=== PATIENT | male | born 1960 | race Caucasian/White ===

== ENCOUNTER → 2016-06-17 | Outpatient (CLI) | payer MEDICAID | LOC: M LAB 14:35 | PROVIDERS: ATTEND Nurse Practitioner Women's Health | DX: N40.0 Benign prostatic hyperplasia without lower urinary tract symptoms (principal) | CPT/HCPCS: 36415; G0103 ==

== ENCOUNTER → 2017-05-24 | Outpatient (CLI) | payer BC | LOC: M RAD 17:42 | DX: N50.3 Cyst of epididymis (principal); N43.3 Hydrocele, unspecified | CPT/HCPCS: 76870 ==

== ENCOUNTER → 2017-06-21 | Outpatient (CLI) | payer BC ==
[2017-06-21 20:12] LABS: PROSTATIC SPECIFIC AG MONITOR 0.95 NG/ML (< 4.0)
== END ==
LOC: M LAB 17:34
DX: N40.0 Benign prostatic hyperplasia without lower urinary tract symptoms (principal)
CPT/HCPCS: 84153

== ENCOUNTER → 2017-08-02 | Outpatient (CLI) | payer BC | LOC: M EKG 17:43 | DX: Z01.818 Encounter for other preprocedural examination (principal); M19.90 Unspecified osteoarthritis, unspecified site | CPT/HCPCS: 93005 ==

== ENCOUNTER → 2018-02-20 | Outpatient (REF) | payer BC ==
[2018-02-20 14:08] LABS: INFLUENZA A AMPLIFICATION NEGATIVE (NEGATIVE); INFLUENZA B AMPLIFICATION NEGATIVE (NEGATIVE)
== END ==
LOC: M LAB REF 13:21
DX: J11.1 Influenza due to unidentified influenza virus with other respiratory manifestations (principal)
CPT/HCPCS: 87502

== ENCOUNTER → 2018-06-08 | Outpatient (CLI) | payer BC ==
[~2018-06-08] MED LIST: CELE1CAP7; CENT1TAB20 PO; CYCL10TA PO; ZANTTAB9 PO
[2018-06-08 18:10] LABS: APPEARANCE, URINE CLEAR (CLEAR); BACTERIA, URINE AUTO NEGATIVE (NEGATIVE); BILIRUBIN, URINE AUTO NEGATIVE (NEGATIVE); BLOOD, URINE BLOOD NEGATIVE (NEGATIVE); COLOR, URINE YELLOW (YELLOW); GLUCOSE, URINE (UA) AUTO NEGATIVE (NEGATIVE); KETONE, URINE AUTO NEGATIVE (NEGATIVE); LEUKOCYTE ESTERASE, URINE AUTO NEGATIVE (NEGATIVE); NITRITE, URINE AUTO NEGATIVE (NEGATIVE); PROTEIN, URINE AUTO NEGATIVE (NEGATIVE); RBC, URINE AUTO 1 /HPF (0-3); SPECIFIC GRAVITY URINE AUTO 1.021 (1.002-1.035); SQUAMOUS EPITHELIAL CELL UR AU 0 /HPF (0-6); UROBILINOGEN, URINE AUTO 0.2 mg/dL (0.0-2.0); WBC, URINE AUTO 0 /HPF (0-3)
== END ==
LOC: M LAB 17:27
PROVIDERS: ATTEND Nurse Practitioner Women's Health
DX: R39.9 Unspecified symptoms and signs involving the genitourinary system (principal); Z12.5 Encounter for screening for malignant neoplasm of prostate
CPT/HCPCS: 36415; 81001; G0103

== ENCOUNTER 2019-01-25 14:22 | Emergency (ER) | payer OTHER, BC ==
[~2019-01-25] VITALS: Ht 182.9 cm; Wt 76.1 kg
[2019-01-25] MEDS ORDERED: KETOROLAC 60 MG/2 ML VIAL (J1885) IM ONE (15:45)
[2019-01-25] MEDS ORDERED: ACETAMINOPHEN 325 MG TAB PO ONE (15:45)
--- NOTE | 2019-01-25 16:17 | REP ---
Lumbar spine five views: Comparison is 05/16/2007. There are two fixation screws in the right iliac wing as an interval change. There is lumbar scoliosis convex left, as an interval change. Vertebral body heights and alignment are normal and unchanged. There is mild disc space narrowing at every lumbar level as an interval change compatible with moderate degenerative disc disease throughout the lumbar spine. There is no spondylolysis or spondylolisthesis. The pedicles and facets are unremarkable. The left sacroiliac articulation is unremarkable. Possible fusion of the right sacroiliac joint superiorly in the location of the fixation screws. Impression: Mild multilevel degenerative disc disease. Mild scoliosis convex left. Fixation screws in the right iliac wing crossing the right sacroiliac joint as an interval change. Possible fusion of the right sacroiliac joint superiorly in the location of the fixation screws. Electronically Signed by Dagoberto Tobias MD 01/25/2019 04:09 P
[2019-01-25 16:39] VITALS: BP 148/94
[2019-01-25] MEDS ORDERED: CYCL10TA PO (17:05)
[2019-01-25] MEDS ORDERED: KETO10TAB PO (17:05)
== END 2019-01-25 17:11 | disposition home or self-care (01) ==
LOC: M ED 14:22
DX: S39.012A Strain of muscle, fascia and tendon of lower back, initial encounter (principal); X50.0XXA Overexertion from strenuous movement or load, initial encounter; Y99.0 Civilian activity done for income or pay; Y92.89 Other specified places as the place of occurrence of the external cause; Y93.89 Activity, other specified; M41.86 Other forms of scoliosis, lumbar region
CPT/HCPCS: 72110; 96365; 96366; 96372; 99283; J1885

== ENCOUNTER → 2020-06-17 | Outpatient (REF) | payer OTHER, BC ==
[~2020-06-17] MED LIST changes: +CYCL-707 PO; -CYCL10TA PO; +KETO10TAB PO
== END ==
LOC: M PLALAB 13:14
PROVIDERS: ATTEND Nurse Practitioner Women's Health
DX: Z12.5 Encounter for screening for malignant neoplasm of prostate (principal)

== ENCOUNTER → 2020-06-27 | Outpatient (CLI) | payer OTHER, BC ==
[~2020-06-27] MED LIST changes: +ACET325C5 PO; +CALTTAB6 PO; +NAPR-885 PO; +QC F0.52 PO; +SILD100T PO; +VITMTA PO
--- NOTE | 2020-06-28 08:56 | ECGEPIP ---
[facility] Test Date: 2020-06-27 Pat Name: DILAN DEL ROSARIO Department: Room: - Gender: Male University Professor: : 1960 Requested By: Anayeli Reveles Order Number: [id number] Reading MD: Jose Cordova Measurements Intervals Rowdy Rate: 75 P: 15 NH: 144 QRS: 31 QRSD: 102 T: 56 QT: 400 QTc: 446 Interpretive Statements Poor data quality, interpretation may be adversely affected Normal sinus rhythm Last tracing on 08/02/17 at 18:03 No remarkable changes Electronically Signed on 06-28-2020 8:56:10 EST by Jose Cordova
== END ==
LOC: M EKG 10:41
PROVIDERS: ATTEND Anesthesiology
DX: Z01.818 Encounter for other preprocedural examination (principal); M06.9 Rheumatoid arthritis, unspecified

== ENCOUNTER → 2020-06-27 | Outpatient (CLI) | payer OTHER, BC | LOC: M LABSMTC 10:14 | PROVIDERS: ATTEND Anesthesiology | DX: Z01.812 Encounter for preprocedural laboratory examination (principal); Z20.822 Contact with and (suspected) exposure to COVID-19 ==

== ENCOUNTER 2020-07-02 08:37 | Day surgery (SDC) | payer OTHER ==
[~2020-07-02] VITALS: Ht 182.9 cm; Wt 78.0 kg
[~2020-07-02 08:37] MED LIST changes: +LIDOCAINE 1% MDV 20ML VIAL SQ PRN; +LR 1,000 ML IV ONE; +MIDAZOLAM INJ 2MG/2ML VIAL (J2250 PER 1MG) IV PRN; +ceFAZolin SOD 2 GM in IV 1 EA IV ONE; +fentaNYL 100 MCG/2 ML INJECTION (J3010) IV PRN
[2020-07-02] MEDS ORDERED: propofoL 200 MG/20 ML VIAL As Ordered ONE (09:28)
[2020-07-02] MEDS ORDERED: KETOROLAC 60MG 2ML VIAL As Ordered ONE (09:28)
[2020-07-02] MEDS ORDERED: ONDANSETRON 4MG/2ML VIAL As Ordered ONE (09:28)
[2020-07-02] MEDS ORDERED: ROCURONIUM BROMIDE 50 MG/5 ML VIAL As Ordered ONE (09:28)
[2020-07-02] MEDS ORDERED: dexameTHASONE 4 MG/ML 1ML VIAL (J1100 PER 1MG) As Ordered ONE (09:28)
[2020-07-02] MEDS ORDERED: fentaNYL 100 MCG/2 ML INJECTION (J3010) As Ordered ONE ×2 (09:28→11:06)
[2020-07-02] MEDS ORDERED: SUGAMMADEX SODIUM 500 MG/5 ML VIAL (BRIDION) As Ordered ONE (09:28)
[2020-07-02] MEDS ORDERED: MIDAZOLAM INJ 2MG/2ML VIAL (J2250 PER 1MG) As Ordered ONE ×2 (09:28→11:06)
[2020-07-02] MEDS ORDERED: LIDOCAINE 2% 100MG/5ML SDV (FOR ANES.) As Ordered ONE (09:28)
[2020-07-02] MEDS ORDERED: ACETAMINOPHEN 1000MG 100ML IV BTL (OFIRMEV) (J0131 PER 10MG) As Ordered ONE (09:28)
[2020-07-02] MEDS ORDERED: dexameTHASONE 10MG/1ML VIAL PRES.FREE (J1100 PER 1MG) As Ordered ONE (11:06)
[2020-07-02] MEDS ORDERED: BUPIVACAINE HCL 0.5% 30 ML VIAL As Ordered ONE (11:06)
[2020-07-02] MEDS ORDERED: EPINEPHrine 1MG/ML INJ 30ML MD-VIAL As Ordered ONE (11:15)
[2020-07-02] MEDS ORDERED: LIDOCAINE 1% MDV 20ML VIAL XX ONE (11:30)
[2020-07-02] MEDS ORDERED: dexameTHASONE 10MG/1ML VIAL PRES.FREE (J1100 PER 1MG) XX ONE (11:30)
[2020-07-02] MEDS ORDERED: BUPIVACAINE HCL 0.5% 30 ML VIAL XX ONE (11:30)
[2020-07-02] MEDS ORDERED: ONDANSETRON 4MG/2ML VIAL IV PRN ×2 (14:00→14:05)
[2020-07-02] MEDS ORDERED: oxyCODONE 5MG TAB PO PRN (14:00)
[2020-07-02] MEDS ORDERED: fentaNYL 100 MCG/2 ML INJECTION (J3010) IV PRN (14:00)
[2020-07-02] MEDS ORDERED: HYDROMORPHONE HCL 0.5 MG/ 0.5 ML SYRINGE (J1170 PER 1) IV PRN (14:00)
[2020-07-02] MEDS ORDERED: LR 1,000 ML IV SCH ×2 (14:00→14:05)
[2020-07-02] MEDS ORDERED: ACETAMINOPHEN TAB 650MG DOSE (2X325MG) PO PRN (14:05)
[2020-07-02] MEDS ORDERED: MORPHINE 2 MG/ML 1ML VIAL (J2270) IV PRN (14:05)
[2020-07-02] MEDS ORDERED: PERCOCET 5MG/325MG TAB PO PRN (14:05)
[2020-07-02 16:05] VITALS: BP 150/95
--- NOTE | 2020-07-03 13:07 | RO ---
OPERATIVE NOTE DATE OF OPERATION: 07/02/2020 PREOPERATIVE DIAGNOSIS: Left shoulder subscapularis tear and biceps instability. POSTOPERATIVE DIAGNOSIS: Left shoulder subscapularis tear and biceps instability. PLANNED PROCEDURES: Left shoulder arthroscopy, rotator cuff repair, and subpectoral biceps tenodesis. PROCEDURES PERFORMED: Left shoulder arthroscopy, rotator cuff repair, subpectoral biceps tenodesis, and subacromial decompression. SURGEON: Hu Hallman MD MOTOR ASSEMBLER: None. ANESTHESIA: General. OPERATIVE PREAMBLE: This 59-year-old man experienced clicking in the front of his shoulder, as well as pain anteriorly and anterolaterally. MRI was consistent with instability of the biceps tendon with subscapularis upper border tear. Prior to the surgery, we discussed pros, cons, risks, and benefits; marked the left upper extremity, and proceeded to surgery. DESCRIPTION OF PROCEDURE: The patient was brought to the operating theater. He was administered general anesthetic. He received a block before surgery. Placed in the left lateral decubitus. All bony prominences were padded. Axillary roll was placed. Two grams of IV Ancef administered prior to the start of the case. The patient's upper extremity was prepped and draped in the usual sterile fashion with Chlorhexidine-based prep solution allowing over three minutes prep solution drying time prior to draping. Ten pounds traction with the arm in 45 degrees abduction was used. Preoperative time-out was performed to confirm the correct patient and surgery. I began by making standard posterior arthroscopy portals inserting the arthroscope into the joint. I used spinal needle localization to perform two cannulas; one 7 mm cannula and 8.25 mm cannula just above the subscapularis tendon. Rotator interval was debrided and opened. The under surface of the rotator cuff tendon and supraspinatus had minor 20% undersurface spraying. This was gently debrided from the anterior portal. The biceps tendon did appear to be splitting the upper border of the subscapularis and unstable. There was a normal sublabral foramen or variant of normal. Anterior labrum had some slight fraying, which was gently debrided. The cartilage appeared normal on the glenoid and humeral head. The rest of the rotator cuff tendon appeared normal. Biceps showed some longitudinal fraying as well. I performed an intraarticular biceps tenotomy using electrocautery and gentle shaving to achieve a stable superior labrum from where the biceps tendon was cut. I then used the PowerPick to stimulate bone healing at the superior aspect of the subscapularis area. The load and shift maneuver revealed upper border fraying and splitting. No obvious full-thickness tears. I used one FiberTape suture in a single fashion at the upper border of the subscapularis. I then used a tap and inserted an Arthrex 4.75 mm BioComposite SwiveLock in the area of the upper border anterior and subscapularis tendon. This achieved good bite, sutures were cut short, and stay suture removed. I then turned my attention to the subacromial space and inserted the arthroscope there. I made a standard lateral portal. I performed a thorough bursectomy. There was quite a tight anterolateral subacromial space. A subacromial decompression was performed with a 5 mm oval umesh width down to flap margins. The bursa was thorough removed. No obvious superior tearing or fraying of the rotator cuff aside from one very small 5 mm area anterolateral with no obvious partial-thickness tears over 50%. The arthroscope was withdrawn. I then turned my attention to performing a subpectoral biceps tenodesis. I made a small longitudinal incision overlying the biceps long head at the proximal anteromedial aspect humerus. Carried dissection down through the skin and subcutaneous tissue achieving meticulous hemostasis. I identified the cephalic vein and retracted this laterally. I identified the long head of the biceps, distal to pectoralis major insertion. I delivered the LHB through incision. I removed 2.5 cm of the long head of the biceps. I then secured LHB using the Arthrex Marc needle and Fiberloop stitch configuration for five throws locking it proximally, cut at the splice, and then passed the sutures in alternating fashion through a button. I then put Fiberlink suture in the undersurface of the biceps tendon. I then used the spade tip drill to drill bicortically at the biceps groove. I then over-reamed the proximal cortex with a 7 mm reamer and irrigated the bone dust. I removed the pin passed the button bicortically, flipped the button, and passed the tendon into the bone tunnel docking it in there securely. I then attached one limb through the FiberLink, securing the sutures over top of the biceps tendon again. I used five interrupted half-hitches and cut the sutures short. I thoroughly irrigated the wounds. Subcutaneous tissue was closed with interrupted 2-0 Vicryl sutures and skin with 3-0 Monocryl. Steri-Strips were applied. The wound was clean dried prior to the application of Adaptic, 4 x 8 gauze, ABD dressing with cloth tape and a sling to the upper extremity. The patient was awoken from general anesthetic, transferred off the operating room table, and taken to the postanesthetic care unit in stable condition. All sponge count, needle count, and instrument counts were correct. COMPLICATIONS: None. ESTIMATED BLOOD LOSS: 50 cc . PLAN: The patient will start pendulum exercises, as well as hand, wrist, and elbow exercises. Follow-up in the office in two weeks' time. He will be discharged home according to day surgery criteria. The patient will be given a prescription to a pharmacy of choice electronically. I performed narcotic counseling prior to the case. [place]
== END 2020-07-02 16:20 | disposition home or self-care (01) ==
LOC: M SDC 08:37
PROVIDERS: ATTEND Orthopaedic Surgery Sports Medicine
DX: S46.212A Strain of muscle, fascia and tendon of other parts of biceps, left arm, initial encounter (principal); M25.312 Other instability, left shoulder; X58.XXXA Exposure to other specified factors, initial encounter; Y92.89 Other specified places as the place of occurrence of the external cause; Y93.9 Activity, unspecified; Y99.0 Civilian activity done for income or pay; K57.92 Diverticulitis of intestine, part unspecified, without perforation or abscess without bleeding; Z79.899 Other long term (current) drug therapy
CPT/HCPCS: 23430; 29826; 29827; 64415; C1713; J0131; J0690; J1100; J1885; J2250; J2405; J3010

== ENCOUNTER → 2021-03-05 | Outpatient (CLI) | payer OTHER ==
[~2021-03-05] MED LIST changes: -LIDOCAINE 1% MDV 20ML VIAL SQ PRN; -LR 1,000 ML IV ONE; -MIDAZOLAM INJ 2MG/2ML VIAL (J2250 PER 1MG) IV PRN; -ceFAZolin SOD 2 GM in IV 1 EA IV ONE; -fentaNYL 100 MCG/2 ML INJECTION (J3010) IV PRN
--- NOTE | 2021-03-06 11:41 | REP ---
INDICATION: LT SHOULDER ASSESS SUPRASPINATUS TENDON. COMPARISON: 02/25/2020. TECHNIQUE: Coronal oblique T1, T2 fat sat, sagittal oblique T2 fat sat, axial T2 fat sat, gradient echo. FINDINGS: Rotator cuff: There is a partial undersurface tear of the infraspinatus tendon. There is a partial full-thickness tear of the supraspinatus tendon. The repaired subscapularis tendon is intact. Acromioclavicular joint: There is widening of the acromioclavicular joint which is unchanged since the prior study. Acromion: Type 2 once again, an os acromiale is noted. Biceps Tendon: There has been a prior biceps tenodesis, the bicipital groove is empty. Hill Sach's deformity: None. Deltoid muscle: No abnormal signal. Labrum: No tear. A sublabral foramen is again noted anteriorly and superiorly. Cartilage: No defects. Bone marrow: No abnormal signal. Joint fluid: There is mild fluid in the subacromial/subdeltoid bursae. No significant glenohumeral joint effusion is present. IMPRESSION: New Partial full-thickness tear of the supraspinatus tendon. Partial undersurface tear of the infraspinatus tendon. The repaired subscapularis tendon is intact. The acromioclavicular region is unchanged. There is evidence of prior biceps tenodesis. There is mild fluid in the subacromial/subdeltoid bursae. <Electronically signed by Dagoberto Serrano > 03/06/21 4331
== END ==
LOC: M PLAIMG 13:32
PROVIDERS: ATTEND Orthopaedic Surgery Sports Medicine
DX: Z48.89 Encounter for other specified surgical aftercare (principal); S46.012D Strain of muscle(s) and tendon(s) of the rotator cuff of left shoulder, subsequent encounter; X58.XXXD Exposure to other specified factors, subsequent encounter; Y92.9 Unspecified place or not applicable; Y93.9 Activity, unspecified; Y99.9 Unspecified external cause status

== ENCOUNTER → 2021-06-24 | Outpatient (CLI) | payer OTHER, BC | LOC: M PLALAB 08:29 | PROVIDERS: ATTEND Nurse Practitioner Women's Health | DX: Z12.5 Encounter for screening for malignant neoplasm of prostate (principal) | CPT/HCPCS: 36415; G0103 ==

== ENCOUNTER → 2022-06-23 | Outpatient (CLI) | payer BC | LOC: M PLALAB 10:04 | PROVIDERS: ATTEND Nurse Practitioner Women's Health | DX: Z12.5 Encounter for screening for malignant neoplasm of prostate (principal) | CPT/HCPCS: 36415; G0103 ==

== ENCOUNTER → 2023-05-31 | Outpatient (CLI) | payer OTHER ==
[~2023-05-31] MED LIST changes: -CELE1CAP7; +CELE1CAP99
[2023-05-31 15:43] LABS: HEMATOCRIT 45.4 % (42.0-52.0); MEAN CORPUSCULAR HEMOGLOBIN 30.7 pg (27.0-33.0); MEAN CORPUSCULAR VOLUME 92.8 fl (80.0-96.0); PLATELET COUNT, AUTOMATED 320 10^3/uL (150-450); RED BLOOD COUNT 4.89 10^6/uL (4.30-6.10); WHITE BLOOD COUNT 6.3 10^3/uL (4.0-10.0)
[2023-05-31 16:06] LABS: CREATININE, URINE 69.3 MG/DL; MALB URINE SIEMENS < 3.0 MG/L; MAU/CREAT RATIO 4.3 MCG/MG (0.0-30.0)
[2023-05-31 16:07] LABS: ALBUMIN 3.7 G/DL (3.2-5.2); ALKALINE PHOSPHATASE 54 U/L (46-116); ALT/SGPT 29 U/L (7.0-40); AST/SGOT 15 U/L (<34); BILIRUBIN,TOTAL 0.3 MG/DL (0.3-1.2); BLOOD UREA NITROGEN 15 MG/DL (9-23); CALCIUM LEVEL 9.3 MG/DL (8.3-10.6); CARBON DIOXIDE LEVEL 31 MMOL/L (20-31); CHLORIDE LEVEL 107 MMOL/L (98-107); CHOLESTEROL LEVEL 209 MG/DL (<200); CHOLESTEROL RISK RATIO 4.54 (<5); CREATININE FOR GFR 0.86 MG/DL (0.70-1.30); GLOMERULAR FILTRATION RATE > 60.0 (>49); GLUCOSE, FASTING 92 MG/DL (74-106); LDL CHOLESTEROL 138.6 MG/DL (<100); POTASSIUM SERUM 4.5 MMOL/L (3.5-5.1); SODIUM LEVEL 141 MMOL/L (136-145); TOTAL PROTEIN 6.6 G/DL (5.7-8.2); TRIGLYCERIDES LEVEL 122 MG/DL (<150)
[2023-05-31 16:09] LABS: THYROID STIMULATING HORMONE 1.026 uIU/ML (0.55-4.78)
[2023-05-31 16:18] LABS: HEMOGLOBIN A1c 5.9 % (4.0-6.0)
== END ==
LOC: M PLALAB 12:29
PROVIDERS: ATTEND Family Medicine
DX: I10 Essential (primary) hypertension (principal); Z13.6 Encounter for screening for cardiovascular disorders

== ENCOUNTER → 2023-06-09 | Outpatient (CLI) | payer OTHER | LOC: M SLEEP HO 09:40 | PROVIDERS: ATTEND Family Medicine | DX: I10 Essential (primary) hypertension (principal) ==

== ENCOUNTER → 2023-06-24 | Outpatient (CLI) | payer OTHER | LOC: M PLALAB 11:03 | PROVIDERS: ATTEND Physician Assistant | DX: N40.1 Benign prostatic hyperplasia with lower urinary tract symptoms (principal) ==

== ENCOUNTER → 2024-06-28 | Outpatient (CLI) | payer OTHER | LOC: M PLALAB 11:17 | PROVIDERS: ATTEND Physician Assistant | DX: Z12.5 Encounter for screening for malignant neoplasm of prostate (principal) ==